=== PATIENT | male | born 1930 ===

== ENCOUNTER → 2017-04-01 | Outpatient (CLI) | payer OTHER | END | disposition home or self-care (01) | LOC: C.LABMFLN 13:22 | PROVIDERS: ATTEND Physician Assistant | DX: R60.9 Edema, unspecified (principal) ==

== ENCOUNTER → 2017-06-11 | Outpatient (CLI) | payer OTHER ==
[2017-06-11 18:34] LABS: BASO % 0.2 %; BASO ABS # 0.02 K/uL (0-0.2); COMPLETE YES; HEMATOCRIT 36.6 % (42-52); IG% 0.3 %; LYMPH ABS # 0.58 K/uL (1.2-3.4); MEAN CELL VOLUME 94.3 fL (80-100); MEAN CORPUSCULAR HEMOGLOBIN 30.2 pg (25-34); MEAN PLATELET VOLUME 10.5 fL (7.4-10.4); MONO % 6.4 %; NEUT % 87.1 %; PLATELET COUNT 309 K/uL (130-400); RED BLOOD COUNT 3.88 M/uL (4.7-6.1); WHITE BLOOD COUNT 11.57 K/uL (4.8-10.8)
[2017-06-11 18:40] LABS: ALT/SGPT 11 U/L (12-78); AST/SGOT 14 U/L (15-37); BLOOD UREA NITROGEN 21 mg/dl (7-18); BUN/CREATININE RATIO 23.4 (10-20); CALCIUM 8.7 mg/dl (8.5-10.1); CARBON DIOXIDE 29 mmol/L (21-32); CHLORIDE 106 mmol/L (98-107); GLUCOSE 121 mg/dl (70-99); POTASSIUM 4.2 mmol/L (3.5-5.1); SODIUM 137 mmol/L (136-145)
[2017-06-11 18:43] LABS: ALB/GLOB RATIO 0.6 (0.9-2); ALKALINE PHOSPHATASE 39 U/L (45-117)
== END | disposition home or self-care (01) ==
LOC: C.LABMFLN 14:23
PROVIDERS: ATTEND Family Medicine
DX: J44.0 Chronic obstructive pulmonary disease with (acute) lower respiratory infection (principal); J18.9 Pneumonia, unspecified organism; J47.9 Bronchiectasis, uncomplicated; R06.00 Dyspnea, unspecified

== ENCOUNTER → 2017-06-15 | Outpatient (CLI) | payer OTHER ==
[2017-06-15 13:32] LABS: URINE APPEARANCE CLEAR (CLEAR); URINE BILIRUBIN NEG (NEG); URINE COLOR YELLOW; URINE NITRITE NEG (NEG); URINE PH 6.5 (4.5-7.5); URINE SPECIFIC GRAVITY 1.013 (1.000-1.030); UROBILINOGEN NEG (NEG); ZZUR CULT IF INDIC CLEAN CATCH NO
[2017-06-15 13:39] LABS: MANUAL MICROSCOPIC REQUIRED? NO; REVIEW REQ? NO
[2017-06-17 06:07] LABS: ALBUMIN 3.1 G/DL (3.8-4.8); ALBUMIN % 39.57 %; ALPHA-2-GLOBULIN % 15.87 %; BETA GLOBULIN % 19.35 %; CREATININE UR 69 MG/DL (20-370); GAMMA GLOBULIN 1.4 G/DL (0.8-1.7); GAMMA GLOBULIN % 19.49 %; TOTAL PROTEIN 6.8 G/DL (6.2-8.3)
== END | disposition home or self-care (01) ==
LOC: C.LABMFLN 10:58
PROVIDERS: ATTEND Family Medicine
DX: R13.10 Dysphagia, unspecified (principal)

== ENCOUNTER → 2017-06-22 | Outpatient (CLI) | payer OTHER | END | disposition home or self-care (01) | LOC: C.LABSPEC 14:08 | PROVIDERS: ATTEND Family Medicine | DX: R63.4 Abnormal weight loss (principal) ==

== ENCOUNTER → 2017-06-23 | Outpatient (CLI) | payer OTHER ==
[2017-07-02 07:38] LABS: O&P SOURCE OTHER-STOOL
== END | disposition home or self-care (01) ==
LOC: C.LABMFLN 11:36
PROVIDERS: ATTEND Family Medicine
DX: R63.4 Abnormal weight loss (principal)